=== PATIENT | female | born 1955 | race Caucasian/White ===

== ENCOUNTER 2017-05-20 12:06 | Inpatient (IN) | payer MEDICARE ==
[~2017-05-20] VITALS: Ht 154.9 cm; Wt 63.6 kg
--- NOTE | ~2017-05-20 | CN ---
PATIENT NAME:TYRONE MONROY MEDICAL RECORD: [id number] : 51 LOCATION:D.MS [place]2 ADMIT DATE: 05/20/17 ACCOUNT: [id number] CONSULTING PHYSICIAN: CHRISTY JALLOH MD REFERRING PHYSICIAN: CLAUDIA ANN MD DATE OF CONSULTATION: 05/21/2017 CHIEF COMPLAINT: Abscess. HISTORY OF PRESENT ILLNESS: The symptoms were presented 4 days ago. I have personally seen and examined the patient. I have discussed the patient in person with Dr. Ann. The patient was seen at an urgent care center. She was placed on antibiotics. The symptoms are moderate in intensity. They include induration, tenderness and pain. There are 2 different sites. They are both in the left lower quadrant. One has ribbon gauze coming out of it as a drain. Symptoms came on gradually. Palpation aggravates. Nothing alleviates. I am going to plan for excisional debridement of both of these in the operating room tomorrow. The risks, possible complications and alternatives to procedure were explained to the patient. She elects to proceed. She thought that perhaps she was stung or bitten by some type of insect in this area, but was unsure about it. PAST MEDICAL AND SURGICAL HISTORY: Diabetes mellitus. FAMILY HISTORY: Noncontributory. HOME MEDICATIONS: Have been reviewed. REVIEW OF SYSTEMS: Positive for axillary pain where there was another abscess that does not require debridement at this time. Also, positive for headache. Negative for fatigue. No chest pain, no shortness of breath, no back pain, no agitation, no confusion. Positive for rash. PHYSICAL EXAMINATION: GENERAL: The patient does not appear acutely ill. She does appear chronically ill. The entire physical examination was performed in the presence of a female nurse. VITAL SIGNS: Reviewed. HEAD: External ears appear normal. EYES: Extraocular movements are intact. NECK: Trachea is midline. CHEST: No intercostal retractions. PULMONARY: Nonlabored, no stridor. ABDOMEN: Tenderness around the site of the open wounds. INTEGUMENT: As described above. PSYCHIATRIC: Normal affect. NEUROLOGIC: Nonfocal, no lethargy. The patient answers questions appropriately. Moves all extremities well. BACK: No thoracic kyphosis. LYMPHATICS: No lymphangitic streaking of the exposed extremities. IMPRESSION: Abdominal wall abscesses requiring further debridement after incision and drainage. CONSULT REPORT [id number] TYRONE MONROY PLAN: Will be excisional debridement in the operating room tomorrow. The patient likely will require several days of intravenous antibiotics here in the hospital before being dismissed home. TRANSINT:[id number] Voice Confirmation ID: [id number] DOCUMENT ID: [id number] CHRISTY JALLOH MD CC: CRYS COSTELLO M.D. and CLAUDIA ANN MD [id number] DICTATION DATE: 05/22/17 1148 BARREL POLISHER: 05/22/17 1920 ADM IN [place] [id number] [place] [id number]
--- NOTE | ~2017-05-20 | OP ---
PATIENT NAME: TYRONE MONROY MEDICAL RECORD: [id number] :51 LOCATION:D.MS [place] ADMISSION DATE:05/20/17 SURGEON: MAYKEL JALLOH MD DATE OF OPERATION: 05/22/2017 PREOPERATIVE DIAGNOSIS: Abdominal abscesses times 2, please see dimensions below. POSTOPERATIVE DIAGNOSIS: Abdominal abscesses times 2, please see dimensions below. PROCEDURES: 1. Excisional debridement of abdominal wall abscess, left lower quadrant. The dimensions of the debridement, including margins, measured 4.3 cm x 4.5 cm and is 3.8 cm in depth. The debridement included skin, subcutaneous tissue as well as the abscess cavity. I debrided back sharply to viable bleeding margins. The wound was then marsupialized and packed. 2. Excisional debridement of inferior abscess of the left lower quadrant. Dimensions of debridement, including margins, measured 1.9 x 1.8 cm. It included skin, subcutaneous tissue as well as abscess cavity. This wound was not marsupialized. It was only 1 cm in depth. SURGEON: Maykel Jalloh MD. STRAW HAT BRIM CUTTER OPERATOR: None. BLOOD LOSS: Minimal. ANESTHESIA: General. COMPLICATIONS: None. The risks, possible complications and alternatives to procedure were explained to the patient. She elects to proceed. OPERATIVE COURSE: The patient was conveyed to the operating room electively on 05/22/2017. General anesthesia was induced by anesthesia staff. The abdomen was sterilely prepped and draped. Utilizing scalpel, debridements were carried out. Further curettage was indicated as well. Cultures were obtained. The dimensions of debridement are as listed above. Meticulous hemostasis was achieved with electrocautery. I then irrigated with hydrogen peroxide. I marsupialized the larger of the 2 wounds with a running locking 3-0 Vicryl Rapide suture. I then packed the superior wound, which was the larger wound with Kerlix that has been soaked with quarter-strength Dakin's. Sterile dressings were applied. The patient was then extubated and conveyed to post-anesthesia care unit where she was in stable condition. TRANSINT:[id number] Voice Confirmation ID: [id number] DOCUMENT ID: [id number] OPERATIVE REPORT [id number] MONROYTYRONE Ellis MAYKEL JALLOH MD CC: [id number] DICTATION DATE: 05/22/17 1151 CORPORATE PLANNER: 05/22/17 192 ADM IN [facility] [address] [place] [id number]
[~2017-05-20 12:06] MED LIST: ATIVAN1 MG PO; CELEXA40 MG PO; CLEOCIN HCL300 MG PO; CYCLOBENZAPRINE10 MG PO; K-TAB10 MEQ PO; LASIX20 MG PO; NORCO 10/325 TA1 TA1 PO; PEPCID20 MG PO; PROBOTICS PO; TOPROL XL25 MG PO; ZESTRIL40 MG PO
[2017-05-20 13:44] LABS: BASOPHILS 0.2 % (0-2); EOSINOPHILS 3.7 % (0-7); HEMATOCRIT 38.8 % (36.0-48.0); HEMOGLOBIN 13.1 g/dL (12-16); IMMATURE GRANULOCYTES 0.3 % (0-5); LYMPHOCYTES 10.6 % (15-50); MCH 30.3 pg (26.0-34.0); MCHC 33.8 g/dL (31.0-37.0); MCV 89.6 fL (80.0-100.0); MEAN PLATELET VOLUME 10.8 fL (7.4-10.4); MONOCYTES 10.8 % (2-11); NEUTROPHILS 74.4 % (40-80); RBC 4.33 10x6/uL (4.00-5.40); RDW 13.2 % (11.5-14.5); WBC 6.2 10x3/uL (4.8-10.8)
[2017-05-20 13:46] LABS: PLATELET COUNT 190 10x3/uL (130-400)
[2017-05-20 13:52] LABS: INR 1.02 (0.85-1.17); PROTIME 13.2 SECONDS (11.6-15.0)
[2017-05-20 13:59] LABS: ALBUMIN 3.2 g/dL (3.4-5.0); ALKALINE PHOSPHATASE 70 U/L (46-116); ALT (SGPT) 35 U/L (10-68); BILIRUBIN - TOTAL 0.32 mg/dL (0.2-1.3); CALC OSMOLALITY 279 mosm/kg (275-300); CALCIUM 10.7 mg/dL (8.5-10.1); CARBON DIOXIDE 25.3 mmol/L (21.0-32.0); CHLORIDE - SERUM 96 mmol/L (98-107); GLUCOSE 184 mg/dL (74-106); POTASSIUM - SERUM 5.1 mmol/L (3.5-5.1); PROTEIN - SERUM 7.8 g/dL (6.4-8.2); SODIUM 130 mmol/L (136-145); UREA NITROGEN 51 mg/dL (7-18); eGFR NON AFRICAN AMERICAN 27 mL/min (90-120)
[2017-05-20 14:02] LABS: MAGNESIUM - SERUM 1.3 mg/dL (1.8-2.4)
[2017-05-20 14:03] LABS: TROPONIN-I < 0.017 ng/mL (0.000-0.060)
[2017-05-20 15:16] LABS: APPEARANCE HAZY (CLEAR); BILIRUBIN NEGATIVE (NEGATIVE); COLOR YELLOW (YELLOW); GLUCOSE 1000 mg/dL (NEGATIVE); KETONE NEGATIVE (NEGATIVE); LEUKOCYTE ESTERASE 2+ (NEGATIVE); NITRITE NEGATIVE (NEGATIVE); PROTEIN NEGATIVE (NEGATIVE); SPECIFIC GRAVITY 1.015 (1.005-1.020); UROBILINOGEN NORMAL (NORMAL)
[2017-05-20 15:27] LABS: AMORPHOUS SEDIMENT <1+ /lpf (NONE SEEN); BACTERIA MANY /hpf (NONE SEEN); EPITHELIAL CELLS 0-5 /hpf (0-5); HYALINE CAST RARE /lpf (NONE SEEN); RED CELLS - URINE OCC /hpf (0-5)
--- NOTE | 2017-05-20 22:00 | NUR ---
PATIENT RECEIVED TO ROOM FROM ER VIA STRETCHER WITH HOSPITAL STAFF. AAOX4. RR EVEN AND UNLABORED. 0 S/S OF DISTRESS. STATES PAIN IS AN 8/10. IV TO RIGHT AC PATENT WITH NO REDNESS OR SWELLING. DRESSING TO ABD CDI. ORIENTED PATIENT TO ROOM AND CALL LIGHT. SRX2. BED LOW. CALL LIGHT WITHIN REACH.
--- NOTE | 2017-05-20 23:45 | NUR ---
IV MAG INITIATED PER ORDER. NORCO GIVEN FOR PAIN. WILL REASSESS.
[2017-05-20 23:59] VITALS: BP 93/48; Ht 154.9 cm; Wt 63.6 kg
[2017-05-21] MEDS ORDERED: GLUCOPHAGE500 MG PO (00:10)
[2017-05-21] MEDS ORDERED: GABAPENTIN100 MG PO (00:11)
[2017-05-21] MEDS ORDERED: CYMBALTA20 MG PO (00:12)
[2017-05-21] MEDS ORDERED: KLONOPIN0.5 MG PO (00:13)
--- NOTE | 2017-05-21 05:45 | NUR ---
PATIENT'S BP 79/44, BUT PATIENT IS ASYMPTOMATIC. SPOKE WITH JIMI SINGLETON ABOUT CALLING PHYSICIAN, BUT SHE STATED SHE WOULD SEND AN ICU NURSE TO EVALUATE THE PATIENT FIRST. ORDER PUT IN UNDER DR. TORRES TO GIVE PATIENT A 500ML BOLUS. BOLUS INITIATED.
[2017-05-21 06:55] LABS: BASOPHILS 0.2 % (0-2); EOSINOPHILS 3.3 % (0-7); HEMOGLOBIN 14.1 g/dL (12-16); IMMATURE GRANULOCYTES 0.5 % (0-5); MCH 30.1 pg (26.0-34.0); MCHC 33.6 g/dL (31.0-37.0); MCV 89.7 fL (80.0-100.0); MEAN PLATELET VOLUME 11.2 fL (7.4-10.4); MONOCYTES 11.8 % (2-11); NEUTROPHILS 74.2 % (40-80); PLATELET COUNT 204 10x3/uL (130-400); RBC 4.68 10x6/uL (4.00-5.40); RDW 13.2 % (11.5-14.5); WBC 6.3 10x3/uL (4.8-10.8)
[2017-05-21 06:56] LABS: ANION GAP 15.4 mmol/L (8-16); CALCIUM 10.2 mg/dL (8.5-10.1); CARBON DIOXIDE 23.9 mmol/L (21.0-32.0); POTASSIUM - SERUM 5.3 mmol/L (3.5-5.1)
[2017-05-21 07:00] LABS: CREATININE - SERUM 1.4 mg/dL (0.6-1.3)
--- NOTE | 2017-05-21 07:30 | NUR ---
RESTING IN BED, AT BEDSIDE, BED LOWEST POSIITON CALL LIGHT IN REACH, WILL CONTINUE TO MONITOR, DENIES NEEDS
[2017-05-21 08:21] VITALS: BP 91/55
--- NOTE | 2017-05-21 10:45 | NUR ---
PATIENT UP TO SHOWER WITH ASSIST FROM SONIA, NURSE AID.
[2017-05-21 13:01] VITALS: BP 87/55
[2017-05-21 14:53] LABS: HEMOGLOBIN A1C 6.8 % (4.8-6.0)
[2017-05-21 16:10] VITALS: BP 95/63
--- NOTE | 2017-05-21 19:00 | NUR ---
PATIENT IN BED WATCHING TV. HOB 30 DEGREES. AAOX4. RR EVEN AND UNLABORED. 0 S/S OF DISTRESS. STATES PAIN IS AN 8/10. IV TO RIGHT AC PATENT WITH NO REDNESS OR SWELLING. DRESSING TO LLQ OF ABD SOILED. SCD'S OFF AT THIS TIME. CALL LIGHT WITHIN REACH.
[2017-05-21 20:00] VITALS: BP 110/65
--- NOTE | 2017-05-21 22:00 | NUR ---
COLLECTED PATIENT'S URINE SPECIMENS. 2 UNITS HUMALOG GIVEN FOR BS OF 163. REMOVED SOILED DRESSING TO ABD. APPLIED BACTROBAN PER ORDER. REPLACED WITH CLEAN DRESSING.
--- NOTE | 2017-05-21 23:30 | NUR ---
NORCO GIVEN FOR PAIN.
[2017-05-21 23:46] LABS: CREATININE - URINE 18.9 mg/dL (30-125); POTASSIUM - URINE 12.5 MMOL/L (12.0-62.0)
[2017-05-21 23:47] LABS: PRO/CRE RATIO URINE 0.1 mg/g; PROTEIN - URINE 2.2 mg/dL (0.0-11.9)
[2017-05-22] VITALS: BP 114/66
--- NOTE | 2017-05-22 03:45 | NUR ---
PATIENT C/O PAIN AT AN 8. NORCO GIVEN.
[2017-05-22 04:00] VITALS: BP 120/60
[2017-05-22 06:16] LABS: BASOPHILS 0.3 % (0-2); EOSINOPHILS 5.9 % (0-7); HEMATOCRIT 37.6 % (36.0-48.0); HEMOGLOBIN 12.5 g/dL (12-16); LYMPHOCYTES 14.8 % (15-50); MCH 29.8 pg (26.0-34.0); MCHC 33.2 g/dL (31.0-37.0); MCV 89.7 fL (80.0-100.0); MEAN PLATELET VOLUME 10.7 fL (7.4-10.4); MONOCYTES 11.5 % (2-11); NEUTROPHILS 66.5 % (40-80); PLATELET COUNT 186 10x3/uL (130-400); RBC 4.19 10x6/uL (4.00-5.40); RDW 13.1 % (11.5-14.5)
[2017-05-22 06:17] LABS: WBC 3.9 10x3/uL (4.8-10.8)
[2017-05-22 06:31] LABS: ALBUMIN 2.9 g/dL (3.4-5.0); ANION GAP 11.2 mmol/L (8-16); BILIRUBIN - TOTAL 0.3 mg/dL (0.2-1.3); CALCIUM 8.9 mg/dL (8.5-10.1); CARBON DIOXIDE 22.3 mmol/L (21.0-32.0); CREATININE - SERUM 1.2 mg/dL (0.6-1.3); POTASSIUM - SERUM 4.5 mmol/L (3.5-5.1); PROTEIN - SERUM 7.3 g/dL (6.4-8.2)
--- NOTE | 2017-05-22 07:50 | NUR ---
ASSESSMENT COMPLETE.IV TO R AC PATENT.NS INFUSING AT 125 CC/HR VIA PUMP. CONTACT ISOLATION.NPO FOR SURGERY TODAY. DRESSING TO LLQ INTACT.
[2017-05-22 10:05] VITALS: BP 85/57
--- NOTE | 2017-05-22 10:35 | NUR ---
OFF FLOOR TO OR VIA BED.
--- NOTE | 2017-05-22 12:19 | NUR ---
RETURNED TO ROOM FROM RECOVERY ROOM.
--- NOTE | 2017-05-22 12:20 | NUR ---
VSS. LARGE DRESSING C/D/I TO LLQ. DENIES ANY NEEDS AT PRESENT.
[2017-05-22 12:24] VITALS: BP 121/78
--- NOTE | 2017-05-22 15:00 | NUR ---
RESTING QUIETLY AT THIS TIME.
[2017-05-22 16:03] VITALS: BP 102/55
--- NOTE | 2017-05-22 16:12 | NUR ---
Patient Name: TYRONE MONROY Admission Status: ER Accout number: [id number] Admission Date: 05-20-2017 : 1955 Admission Diagnosis:CELLULITIS OF ABDOMINAL WALL Attending: ANTHONY Current LOS: 2 Anticipated DC Date: 05-24-2017 Planned Disposition: Home Primary Insurance: [facility] Discharge Planning Comments: CM MET WITH [facility] REGARDING D/C NEEDS AND PLANS. PATIENT STATED SHE LIVES WITH HER SPOUSE (CYNTHIA) AND HE WILL DRIVE HER HOME AT DISCHARGE. PATIENT WILL HAVE TO CALL HIS BOSS WHEN DISCHARGED (SPOUSE DOES NOT HAVE PHONE). PATIENT STATED SHE IS INDEPENDENT WITH HER CARE AND HAS A GLUCOMETER AT HOME AND CHECKS SUGAR DAILY. PATIENTS PCP IS DR. COSTELLO AND PHARMACY IS [facility]. PATIENT HAS A NURSE THAT COMES ABOUT EVERY 2 MONTHS THAT IS WITH HER INSURANCE COMPANY. PATIENT DOES NOT WANT HOME HEALTH AT DISCHARGE. CM WILL CONTINUE TO FOLLOW PATIENT WITH D/C NEEDS AND PLANS. PCP DR. COSTELLO [facility] [phone] CYNTHIA (SPOUSE) WILL HAVE TO CALL HIM Doughnut Glazier: Liz Crisostomo Is the patient Alert and Oriented? Yes 0 * How many steps to enter\exit or inside your home? 5 RAILS 0 * PCP DR. COSTELLO 0 * Pharmacy [facility] 0 * Preadmission Environment Home with Family 0 * ADLs Independent 0 * Equipment Glucometer 0 * List name and contact numbers for known caregivers / representatives who currently or will assist patient after discharge: CYNTHIA (SPOUSE) PATIENT WILL CALL HIS BOSS WHEN DISCHARGED 0 * Community resources currently utilized None 0 * Additional services required to return to the preadmission environment? Yes 0 * Can the patient safely return to the preadmission environment? Yes 0 * Has this patient been hospitalized within the prior 30 days at any hospital? No 0 Grand Total: 0
--- NOTE | 2017-05-22 18:38 | NUR ---
NO CHANGESN NOTED AT PRESENT.
[2017-05-22 19:00] VITALS: BP 100/62
--- NOTE | 2017-05-22 19:00 | NUR ---
BEDSIDE REPORT RECEIVED AND CARE OF PT ASSUMED. PT LYING IN SUPINE POSITION WITH EYES CLOSED AND UNLABORED BREATHING. DRESSING ON LL ABDOMEN CLEAN AND DRY. IV IN RIGHT AC PATENT WITH NS INFUSING AT 125 ML / HR. SCD'S IN USE. WILL MONITOR CLOSELY FOR NEEDS.
--- NOTE | 2017-05-22 21:44 | NUR ---
HS MEICATIONS GIVEN TO INCLUDE NORCO PO PER REQUEST FOR PAIN, PER PRN ORDER. WILL CONTINUE TO MONITOR FOR NEEDS.
--- NOTE | 2017-05-22 23:37 | NUR ---
COLLECTED URINE FOR CULTURE AND DELIVERED TO LAB.
[2017-05-23] VITALS: BP 81/49
[2017-05-23 04:00] VITALS: BP 100/53
[2017-05-23 05:50] LABS: BASOPHILS 0.3 % (0-2); HEMATOCRIT 34.9 % (36.0-48.0); HEMOGLOBIN 11.7 g/dL (12-16); IMMATURE GRANULOCYTES 0.6 % (0-5); LYMPHOCYTES 12.8 % (15-50); MCH 30.2 pg (26.0-34.0); MCHC 33.5 g/dL (31.0-37.0); MCV 89.9 fL (80.0-100.0); MEAN PLATELET VOLUME 10.5 fL (7.4-10.4); MONOCYTES 13.1 % (2-11); NEUTROPHILS 68.2 % (40-80); PLATELET COUNT 183 10x3/uL (130-400); RBC 3.88 10x6/uL (4.00-5.40); WBC 3.6 10x3/uL (4.8-10.8)
[2017-05-23 06:16] LABS: ALBUMIN 2.8 g/dL (3.4-5.0); ANION GAP 12.8 mmol/L (8-16); BILIRUBIN - TOTAL 0.3 mg/dL (0.2-1.3); CALCIUM 9.2 mg/dL (8.5-10.1); CARBON DIOXIDE 24.4 mmol/L (21.0-32.0); CREATININE - SERUM 1.1 mg/dL (0.6-1.3); PROTEIN - SERUM 6.8 g/dL (6.4-8.2); VANCOMYCIN - RANDOM 0.4 ug/mL (10.0-20.0)
[2017-05-23 06:17] LABS: POTASSIUM - SERUM 5.2 mmol/L (3.5-5.1)
--- NOTE | 2017-05-23 07:50 | NUR ---
ASSESSMENT COMPLETE.IV TO R AC PATENT. NS INFUSING AT 125 CC/HR VIA PUMP. DRESSING TO LEFT LOWER ABDOMEN INTACT. CONTACT ISOLATION. DENIES ANY NEEDS AT PRESENT.
[2017-05-23 08:42] VITALS: BP 110/68
--- NOTE | 2017-05-23 10:03 | NUR ---
DENIES ANY NEEDS AT PRESENT.
[2017-05-23 12:01] VITALS: BP 94/61
--- NOTE | 2017-05-23 15:18 | NUR ---
DENIES ANY NEEDS AT PRESENT.
[2017-05-23 15:45] VITALS: BP 121/74
--- NOTE | 2017-05-23 17:30 | NUR ---
IV TO R FA LEAKING. IV REMOVED. CATHETER TIP INTACT. IV SITED TO L FA WITH 22 GUAGE X 2 ATTEMPTS.
--- NOTE | 2017-05-23 19:00 | NUR ---
BEDSIDE REPORT RECEIVED AND CARE OF PT ASSUMED. PT SITTING UP ON SIDE OF BED VISITING WITH FAMILY MEMBER. IV IN LEFT FA PATENT WITH NS INFUSING AT 125 ML / HR. DRESSING ON LEFT ABDOMEN CLEAN AND DRY. WILL MONITOR CLOSELY FOR NEEDS. CALL LIGHT WITHIN REACH.
[2017-05-23 20:00] VITALS: BP 115/76
--- NOTE | 2017-05-23 20:50 | NUR ---
FSBS 165 THIS CHECK, REQUIRING COVERAGE WITH 2 UNITS OF INSULIN.
--- NOTE | 2017-05-23 20:55 | NUR ---
HS MEDICATIONS GIVEN TO INCLUDE REQUESTED NORCO FOR PAIN. WILL CONTINUE TO MONITOR FOR NEEDS.
--- NOTE | 2017-05-23 21:00 | NUR ---
GAVE HS SNACK OF X2 ORANGE SHERBET AND SHAISTA CRACKERS.
[2017-05-24] VITALS: BP 142/38
[2017-05-24 04:00] VITALS: BP 117/66
[2017-05-24 06:23] LABS: BASOPHILS 0.4 % (0-2); EOSINOPHILS 4.3 % (0-7); HEMATOCRIT 31.9 % (36.0-48.0); HEMOGLOBIN 10.8 g/dL (12-16); IMMATURE GRANULOCYTES 0.4 % (0-5); LYMPHOCYTES 17.9 % (15-50); MCH 29.7 pg (26.0-34.0); MCHC 33.9 g/dL (31.0-37.0); MEAN PLATELET VOLUME 10.3 fL (7.4-10.4); MONOCYTES 13.6 % (2-11); NEUTROPHILS 63.4 % (40-80); PLATELET COUNT 177 10x3/uL (130-400); RBC 3.64 10x6/uL (4.00-5.40); RDW 12.6 % (11.5-14.5)
[2017-05-24 06:31] LABS: MCV 87.6 fL (80.0-100.0); WBC 2.6 10x3/uL (4.8-10.8)
[2017-05-24 06:55] LABS: ALBUMIN 2.7 g/dL (3.4-5.0); ALKALINE PHOSPHATASE 58 U/L (46-116); ALT (SGPT) 24 U/L (10-68); BILIRUBIN - TOTAL 0.36 mg/dL (0.2-1.3); CALC OSMOLALITY 274 mosm/kg (275-300); CALCIUM 8.5 mg/dL (8.5-10.1); CHLORIDE - SERUM 104 mmol/L (98-107); GLUCOSE 130 mg/dL (74-106); PROTEIN - SERUM 6.4 g/dL (6.4-8.2); SODIUM 136 mmol/L (136-145); UREA NITROGEN 14 mg/dL (7-18); VANCOMYCIN - RANDOM 4.9 ug/mL (10.0-20.0)
[2017-05-24 06:58] LABS: CREATININE - SERUM 0.8 mg/dL (0.6-1.3); POTASSIUM - SERUM 3.9 mmol/L (3.5-5.1); eGFR NON AFRICAN AMERICAN 76 mL/min (90-120)
--- NOTE | 2017-05-24 08:00 | NUR ---
PATIENT RESTING IN THE BED. PATIENT IS AWAKE, ALERT, AND ORIENTED X4. DENIES ANY PAIN AT PRESENT TIME. CONTACT ISOLATION IN PLACE. ASSESSMENT COMPLETED. SEE FLOWSHEET FOR ANY DETAILS. PATIENT DENIES ANY NEEDS AT PRESENT TIME. CALL LIGHT IN PATIENT'S REACH. WILL MONITOR PATIENT.
[2017-05-24 08:16] VITALS: BP 113/63
[2017-05-24] MEDS ORDERED: Bactroban ointment NASAL (11:51)
[2017-05-24] MEDS ORDERED: FLORAJEN3 CAPS460 MG PO (11:51)
[2017-05-24] MEDS ORDERED: DOXYCYCLINE HY100 M2 PO (11:53)
[2017-05-24 12:11] VITALS: BP 110/68
--- NOTE | 2017-05-24 13:39 | NUR ---
CM REASSESSMENT NOTE: PATIENT IS DISCHARGING HOME TODAY AND FAMILY WILL DRIVE HER. PATIENT SIGNED THE [facility] FORM WITH [facility] AND THEY ARE AWARE OF HER DISCHARGE. PATIENT HAD NO OTHER NEEDS FOR DISCHARGE
--- NOTE | 2017-05-24 14:38 | NUR ---
HYDROGEN PEROXIDE USED TO CLEAN OPEN ABDOMINAL WOUNDS X2 TO PATIENT'S LEFT SIDE OF ABDOMEN. 4X4 GAUZE APPLIED AND ABD PAD USED TO COVER WOUND. MEDIPORE TAPE USED TO HOLD DRESSING IN PLACE.
--- NOTE | 2017-05-24 15:20 | NUR ---
IV DC'D IN PATIENT'S LEFT FOREARM WITH CATHETER TIP STILL INTACT. BANDAID APPLIED. DISCHARGE PAPERS VERBALIZED TO PATIENT. PATIENT VERBALIZED UNDERSTANDING AND SIGNED DISCHARGE PAPERS. BACTROBAN OINTMENT PRESCRIPTION GIVEN TO PATIENT. PATIENT'S HERE TO DRIVE HER HOME. PATIENT DISCHARGED VIA WHEELCHAIR TO THE CAR.
== END 2017-05-24 15:20 | disposition home health service (06) | DRG 571 ==
LOC: D.ER 12:06 → D.MS 17:32
PROVIDERS: Emergency Medicine; Internal Medicine; Nurse Practitioner Family; Surgery; ADMIT Family Medicine
PROC: 0JB80ZZ Excision of Abdomen Subcutaneous Tissue and Fascia, Open Approach (ICD-10-PCS; principal; 2017-05-22 12:15)
DX: L03.311 Cellulitis of abdominal wall (principal); N17.9 Acute kidney failure, unspecified; E87.1 Hypo-osmolality and hyponatremia; L02.211 Cutaneous abscess of abdominal wall; E83.42 Hypomagnesemia; E87.5 Hyperkalemia; I95.9 Hypotension, unspecified; E11.65 Type 2 diabetes mellitus with hyperglycemia; E11.40 Type 2 diabetes mellitus with diabetic neuropathy, unspecified; Z79.84 Long term (current) use of oral hypoglycemic drugs; K21.9 Gastro-esophageal reflux disease without esophagitis

== ENCOUNTER 2018-04-07 11:37 | Emergency (ER) | payer MEDICARE ==
[2017-05-20 23:59] VITALS: BMI 26.5
[~2018-04-07 11:37] MED LIST changes: +Bactroban ointment NASAL; +CYMBALTA20 MG PO; +DOXYCYCLINE HY100 M2 PO; +FLORAJEN3 CAPS460 MG PO; +GABAPENTIN100 MG PO; +GLUCOPHAGE500 MG PO; +KLONOPIN0.5 MG PO
[2018-04-07 12:47] LABS: BASOPHILS 0.3 % (0-2); EOSINOPHILS 2.9 % (0-7); HEMATOCRIT 36.4 % (36.0-48.0); HEMOGLOBIN 12.4 g/dL (12-16); LYMPHOCYTES 10.9 % (15-50); MCH 30.9 pg (26.0-34.0); MCHC 34.1 g/dL (31.0-37.0); MCV 90.8 fL (80.0-100.0); MEAN PLATELET VOLUME 10.2 fL (7.4-10.4); MONOCYTES 6.2 % (2-11); NEUTROPHILS 78.7 % (40-80); RBC 4.01 10x6/uL (4.00-5.40); RDW 12.8 % (11.5-14.5); WBC 7.9 10x3/uL (4.8-10.8)
[2018-04-07 12:53] LABS: PLATELET COUNT 232 10x3/uL (130-400)
[2018-04-07 13:06] LABS: APPEARANCE SLT CLOUDY (CLEAR); BILIRUBIN NEGATIVE (NEGATIVE); COLOR YELLOW (YELLOW); GLUCOSE 1000 mg/dL (NEGATIVE); KETONE NEGATIVE (NEGATIVE); NITRITE POSITIVE (NEGATIVE); PROTEIN NEGATIVE (NEGATIVE); SPECIFIC GRAVITY 1.015 (1.005-1.020); UROBILINOGEN NORMAL (NORMAL)
[2018-04-07 13:09] LABS: ALBUMIN 3.2 g/dL (3.4-5.0); ANION GAP 13.5 mmol/L (8-16); BILIRUBIN - TOTAL 0.4 mg/dL (0.2-1.3); CALCIUM 10.2 mg/dL (8.5-10.1); CARBON DIOXIDE 28.2 mmol/L (21.0-32.0); CREATININE - SERUM 1.2 mg/dL (0.6-1.3); POTASSIUM - SERUM 4.7 mmol/L (3.5-5.1); PROTEIN - SERUM 8.1 g/dL (6.4-8.2)
[2018-04-07 13:10] LABS: BACTERIA MANY /hpf (NONE SEEN); EPITHELIAL CELLS 0-5 /hpf (0-5); RED CELLS - URINE OCC /hpf (0-5); WHITE CELLS - URINE >50 /hpf (0-5)
[2018-04-07 13:11] LABS: MUCUS <1+ /lpf (NONE SEEN)
[2018-04-07 13:40] LABS: AMYLASE - SERUM 45 U/L (25-115); LIPASE 253 U/L (73-393)
== END 2018-04-07 15:07 | disposition home or self-care (01) ==
LOC: D.ER 11:37
PROVIDERS: Family Medicine
DX: N39.0 Urinary tract infection, site not specified (principal); K46.9 Unspecified abdominal hernia without obstruction or gangrene; E11.9 Type 2 diabetes mellitus without complications

== ENCOUNTER → 2018-04-23 13:50 | Outpatient (CLI) | payer MEDICARE ==
[2017-05-20 23:59] VITALS: BMI 26.5
== END | disposition home or self-care (01) ==
LOC: D.CT 13:50
DX: M25.552 Pain in left hip (principal)

== ENCOUNTER 2018-05-20 07:15 | Inpatient (IN) | payer MEDICARE, MEDICAID ==
[2018-05-19 12:16] LABS: ANION GAP 14.4 mmol/L (8-16); CALCIUM 10.4 mg/dL (8.5-10.1); CARBON DIOXIDE 27.6 mmol/L (21.0-32.0)
[2018-05-19 12:56] LABS: HEMATOCRIT 38.5 % (36.0-48.0); HEMOGLOBIN 12.7 g/dL (12-16); MCH 29.7 pg (26.0-34.0); MCV 90.2 fL (80.0-100.0); MEAN PLATELET VOLUME 11.9 fL (7.4-10.4); RBC 4.27 10x6/uL (4.00-5.40); RDW 13.7 % (11.5-14.5); WBC 4.2 10x3/uL (4.8-10.8)
[2018-05-20] VITALS (9 sets, daily range): BP systolic 100–118; BP diastolic 36–77; BMI 28.3
[~2018-05-20] VITALS: Ht 152.4 cm; Wt 65.8 kg
[~2018-05-20 07:15] MED LIST changes: -CYMBALTA20 MG PO; +CYMBALTA60 MG PO; +LOPRESSOR25 MG PO; +OMEPRAZOLE20 M1 PO
[2018-05-21 01:05] VITALS: BP 105/67
[2018-05-21 05:16] VITALS: BP 113/68
[2018-05-21 06:57] LABS: CALCIUM 8.6 mg/dL (8.5-10.1); CARBON DIOXIDE 26.4 mmol/L (21.0-32.0); CHLORIDE - SERUM 105 mmol/L (98-107); GLUCOSE 174 mg/dL (74-106); POTASSIUM - SERUM 4.5 mmol/L (3.5-5.1); SODIUM 139 mmol/L (136-145); eGFR NON AFRICAN AMERICAN 89 mL/min (90-120)
[2018-05-21 07:09] LABS: CALC OSMOLALITY 283 mosm/kg (275-300); CREATININE - SERUM 0.7 mg/dL (0.6-1.3); UREA NITROGEN 17 mg/dL (7-18)
[2018-05-21 08:13] VITALS: BP 111/68
[2018-05-21 12:35] VITALS: BP 121/73
[2018-05-21 14:07] VITALS: Ht 152.4 cm; Wt 65.8 kg
[2018-05-21 16:37] VITALS: BP 115/64
[2018-05-21 20:01] VITALS: BP 103/68
[2018-05-22 04:35] VITALS: BP 119/68
[2018-05-22 05:24] LABS: BASOPHILS 0.3 % (0-2); EOSINOPHILS 7.3 % (0-7); HEMATOCRIT 30.7 % (36.0-48.0); IMMATURE GRANULOCYTES 0.3 % (0-5); LYMPHOCYTES 16.5 % (15-50); MCH 29.6 pg (26.0-34.0); MCHC 32.6 g/dL (31.0-37.0); MCV 90.8 fL (80.0-100.0); MEAN PLATELET VOLUME 10.9 fL (7.4-10.4); MONOCYTES 13.4 % (2-11); NEUTROPHILS 62.2 % (40-80); RBC 3.38 10x6/uL (4.00-5.40); RDW 13.6 % (11.5-14.5); WBC 3.6 10x3/uL (4.8-10.8)
[2018-05-22 05:39] LABS: PLATELET COUNT 110 10x3/uL (130-400)
[2018-05-22 05:40] LABS: CALCIUM 8.5 mg/dL (8.5-10.1); CARBON DIOXIDE 26.7 mmol/L (21.0-32.0); CHLORIDE - SERUM 101 mmol/L (98-107); CREATININE - SERUM 0.7 mg/dL (0.6-1.3); GLUCOSE 137 mg/dL (74-106); SODIUM 136 mmol/L (136-145); eGFR NON AFRICAN AMERICAN 89 mL/min (90-120)
[2018-05-22 05:45] LABS: CALC OSMOLALITY 272 mosm/kg (275-300); POTASSIUM - SERUM 3.7 mmol/L (3.5-5.1); UREA NITROGEN 9 mg/dL (7-18)
[2018-05-22 08:14] VITALS: BP 104/55
[2018-05-22 13:15] VITALS: BP 123/73
[2018-05-22 16:16] VITALS: BP 130/72
[2018-05-22 20:32] VITALS: BP 166/84
[2018-05-23 04:07] LABS: BASOPHILS 0.6 % (0-2); EOSINOPHILS 5.7 % (0-7); HEMATOCRIT 29.9 % (36.0-48.0); HEMOGLOBIN 9.8 g/dL (12-16); IMMATURE GRANULOCYTES 0.3 % (0-5); LYMPHOCYTES 15.3 % (15-50); MCHC 32.8 g/dL (31.0-37.0); MCV 88.5 fL (80.0-100.0); MEAN PLATELET VOLUME 9.6 fL (7.4-10.4); MONOCYTES 10.5 % (2-11); NEUTROPHILS 67.6 % (40-80); PLATELET COUNT 108 10x3/uL (130-400); RBC 3.38 10x6/uL (4.00-5.40); RDW 13.3 % (11.5-14.5); WBC 3.3 10x3/uL (4.8-10.8)
[2018-05-23 04:13] LABS: CALC OSMOLALITY 274 mosm/kg (275-300); CALCIUM 8.4 mg/dL (8.5-10.1); CARBON DIOXIDE 27.4 mmol/L (21.0-32.0); CHLORIDE - SERUM 103 mmol/L (98-107); CREATININE - SERUM 0.6 mg/dL (0.6-1.3); GLUCOSE 154 mg/dL (74-106); POTASSIUM - SERUM 3.7 mmol/L (3.5-5.1); SODIUM 137 mmol/L (136-145); eGFR NON AFRICAN AMERICAN > 90 mL/min (90-120)
[2018-05-23 04:15] LABS: UREA NITROGEN 6 mg/dL (7-18)
[2018-05-23 04:16] VITALS: BP 166/80
[2018-05-23 08:00] VITALS: BP 135/80
[2018-05-23 11:45] VITALS: BP 145/84
[2018-05-23 15:46] VITALS: BP 129/85
[2018-05-23 19:51] VITALS: BP 155/80
[2018-05-24 04:11] VITALS: BP 126/86
[2018-05-24 05:44] LABS: BASOPHILS 0.3 % (0-2); EOSINOPHILS 8.1 % (0-7); HEMATOCRIT 28.6 % (36.0-48.0); HEMOGLOBIN 9.5 g/dL (12-16); IMMATURE GRANULOCYTES 0.6 % (0-5); LYMPHOCYTES 17.9 % (15-50); MCH 29.2 pg (26.0-34.0); MCHC 33.2 g/dL (31.0-37.0); MONOCYTES 14.6 % (2-11); NEUTROPHILS 58.5 % (40-80); PLATELET COUNT 129 10x3/uL (130-400); RBC 3.25 10x6/uL (4.00-5.40); RDW 13.4 % (11.5-14.5); WBC 3.1 10x3/uL (4.8-10.8)
[2018-05-24 06:13] LABS: CALC OSMOLALITY 273 mosm/kg (275-300); CALCIUM 8.8 mg/dL (8.5-10.1); CARBON DIOXIDE 25.6 mmol/L (21.0-32.0); CHLORIDE - SERUM 102 mmol/L (98-107); CREATININE - SERUM 0.6 mg/dL (0.6-1.3); GLUCOSE 152 mg/dL (74-106); POTASSIUM - SERUM 3.3 mmol/L (3.5-5.1); SODIUM 137 mmol/L (136-145); UREA NITROGEN 5 mg/dL (7-18); eGFR NON AFRICAN AMERICAN > 90 mL/min (90-120)
[2018-05-24 08:45] VITALS: BP 130/80
[2018-05-24 12:39] VITALS: BP 145/69
[2018-05-24] MEDS ORDERED: FARXIGA10 MG PO (16:08)
[2018-05-24 16:37] VITALS: BP 124/81
[2018-05-24 20:55] VITALS: BP 148/87
== END 2018-05-24 22:46 | disposition home or self-care (01) | DRG 571 ==
LOC: D.MS 07:15 → D.OPS 07:15 → D.PAN 11:45 → D.OPS 11:45 → D.MS 14:33 → D.OPS 14:34 → D.MS 05-24 18:05
PROVIDERS: Anesthesiology; Surgery
PROC: 0JB80ZZ Excision of Abdomen Subcutaneous Tissue and Fascia, Open Approach (ICD-10-PCS; principal; 2018-05-22)
DX: L02.211 Cutaneous abscess of abdominal wall (principal); K56.7 Ileus, unspecified; E11.9 Type 2 diabetes mellitus without complications

== ENCOUNTER 2018-11-21 08:00 | Outpatient (CLI) | payer MEDICARE, MEDICAID ==
[2018-05-21 14:07] VITALS: BMI 28.3
[~2018-11-21 08:00] MED LIST changes: +FARXIGA10 MG PO
== END 2018-11-21 09:00 | disposition home or self-care (01) ==
LOC: D.MAMMO 08:00
DX: Z12.31 Encounter for screening mammogram for malignant neoplasm of breast (principal)

== ENCOUNTER → 2019-07-13 12:23 | Outpatient (CLI) | payer MEDICARE, MEDICAID ==
[2018-05-21 14:07] VITALS: BMI 28.3
== END | disposition home or self-care (01) ==
LOC: D.CT 12:23
PROVIDERS: ATTEND Family Medicine
DX: M79.9 Soft tissue disorder, unspecified (principal)

== ENCOUNTER → 2019-09-02 16:02 | Outpatient (CLI) | payer MEDICARE, MEDICAID ==
[2018-05-21 14:07] VITALS: BMI 28.3
[2019-09-02 18:06] LABS: BASOPHILS 0.5 % (0-2); EOSINOPHILS 3.4 % (0-7); HEMATOCRIT 37.2 % (36.0-48.0); HEMOGLOBIN 12.5 g/dL (12-16); IMMATURE GRANULOCYTES 0.3 % (0-5); LYMPHOCYTES 19.4 % (15-50); MCH 31.2 pg (26.0-34.0); MCHC 33.6 g/dL (31.0-37.0); MCV 92.8 fL (80.0-100.0); MONOCYTES 10.2 % (2-11); NEUTROPHILS 66.2 % (40-80); PLATELET COUNT 135 10x3/uL (130-400); RBC 4.01 10x6/uL (4.00-5.40); RDW 13.1 % (11.5-14.5); WBC 3.8 10x3/uL (4.8-10.8)
[2019-09-04 10:11] LABS: ANA REFLEX - DIRECT Negative (Negative)
[2019-09-05 17:08] LABS: ANGIOTENSIN CONVERTING ENZYME < 15 U/L (14-82)
[2019-09-08 17:08] LABS: FUNGAL - ASP FLAVUS Negative (Neg:<1:1); FUNGAL - ASP NIGER Negative (Neg:<1:1); FUNGAL - ASPER FUMIGATUS Negative (Neg:<1:1)
== END | disposition home or self-care (01) ==
LOC: D.LABREF 16:02
PROVIDERS: ATTEND Internal Medicine Pulmonary Disease
DX: R59.0 Localized enlarged lymph nodes (principal)

== ENCOUNTER → 2019-10-16 09:26 | Outpatient (CLI) | payer MEDICARE ==
[2018-05-21 14:07] VITALS: BMI 28.3
== END | disposition home or self-care (01) ==
LOC: D.US 09:26
PROVIDERS: ATTEND Surgery
DX: I83.819 Varicose veins of unspecified lower extremity with pain (principal)

== ENCOUNTER → 2020-01-25 12:52 | Outpatient (CLI) | payer MEDICARE ==
[2018-05-21 14:07] VITALS: BMI 28.3
== END | disposition home or self-care (01) ==
LOC: D.CT 12:52
PROVIDERS: ATTEND Internal Medicine Pulmonary Disease
DX: R59.0 Localized enlarged lymph nodes (principal)

== ENCOUNTER 2020-08-24 13:36 | Inpatient (IN) | payer MEDICARE ==
[~2020-08-24] VITALS: Ht 154.9 cm; Wt 70.1 kg
[2020-08-24 14:36] LABS: BASOPHILS 0.2 % (0-2); EOSINOPHILS 2.9 % (0-7); HEMATOCRIT 36.8 % (36.0-48.0); HEMOGLOBIN 12.2 g/dL (12-16); IMMATURE GRANULOCYTES 0.2 % (0-5); LYMPHOCYTES 8.4 % (15-50); MCH 29.5 pg (26.0-34.0); MCHC 33.2 g/dL (31.0-37.0); MCV 89.1 fL (80.0-100.0); MEAN PLATELET VOLUME 11.1 fL (7.4-10.4); MONOCYTES 8.7 % (2-11); NEUTROPHILS 79.6 % (40-80); PLATELET COUNT 170 10x3/uL (130-400); RBC 4.13 10x6/uL (4.00-5.40); RDW 13.7 % (11.5-14.5); WBC 5.3 10x3/uL (4.8-10.8)
[2020-08-24 14:44] LABS: INR 1.04 (0.85-1.17); PROTIME 13.5 SECONDS (11.6-15.0)
[2020-08-24 14:45] LABS: APTT 26.3 SECONDS (22.8-39.4)
[2020-08-24 14:50] LABS: CALC OSMOLALITY 271 mosm/kg (275-300); CALCIUM 9.7 mg/dL (8.5-10.1); CHLORIDE - SERUM 99 mmol/L (98-107); CREATININE - SERUM 0.9 mg/dL (0.6-1.3); GLUCOSE 151 mg/dL (74-106); POTASSIUM - SERUM 4.2 mmol/L (3.5-5.1); SODIUM 134 mmol/L (136-145); UREA NITROGEN 16 mg/dL (7-18); eGFR NON AFRICAN AMERICAN 66 mL/min (90-120)
[2020-08-24 15:06] LABS: ALBUMIN 3.9 g/dL (3.4-5.0); ALKALINE PHOSPHATASE 72 U/L (30-120); ALT (SGPT) 20 U/L (10-68); BILIRUBIN - TOTAL 0.73 mg/dL (0.2-1.3); CKMB 1.4 U/L (0.0-3.6); CREATINE KINASE 64 UL (21-215); PRO BNP 2450 pg/mL (0-125); PROTEIN - SERUM 7.8 g/dL (6.4-8.2)
[2020-08-24 15:10] LABS: TROPONIN-I < 0.017 ng/mL (0.000-0.060)
[2020-08-24 16:41] VITALS: BP 136/75
[2020-08-24 18:33] VITALS: BP 153/90
--- NOTE | 2020-08-24 19:45 | NUR ---
ATTEMPTED TO CALL REPORT TO FLOOR, NURSE UNAVAILABLE AT THIS TIME. WILL CALL BACK WHEN AVAILABLE TO TAKE REPORT.
[2020-08-24 20:03] LABS: BILIRUBIN NEGATIVE (NEGATIVE); KETONE NEGATIVE (NEGATIVE); NITRITE NEGATIVE (NEGATIVE); UROBILINOGEN NORMAL mg/dL (< 2)
--- NOTE | 2020-08-24 20:30 | NUR ---
ATTEMPTED TO CALL REPORT TO FLOOR AGAIN, NURSE STATES PT WILL HAVE TO GO TO A DIFFERENT ROOM SINCE THE PT IS A PUI AND THE NURSE THAT WILL BE TAKING THEM IS CURRENTLY UNAVAILABLE TO TAKE REPORT AND WILL CALL BACK WHEN AVAILABLE.
[2020-08-24 21:50] LABS: CKMB 1.3 U/L (0.0-3.6); CREATINE KINASE 63 UL (21-215); TROPONIN-I < 0.017 ng/mL (0.000-0.060)
--- NOTE | 2020-08-24 22:24 | NUR ---
PATIENT TO THE FLOOR, A&O X4, AMBULATES WELL JUST GET SOB. LEFT FOREARM PIV THAT IS PATENT. CALL LIGHT WITHIN REACH AND BED IN LOWEST LOCKED POSITION.
[2020-08-24 22:35] VITALS: BP 144/66; BMI 29.2
[2020-08-25] VITALS: BP 112/75
[2020-08-25 03:10] LABS: BASOPHILS 0.2 % (0-2); EOSINOPHILS 0.3 % (0-7); HEMATOCRIT 36.4 % (36.0-48.0); HEMOGLOBIN 12.1 g/dL (12-16); IMMATURE GRANULOCYTES 0.3 % (0-5); LYMPHOCYTES 8.2 % (15-50); MCH 29.5 pg (26.0-34.0); MCHC 33.2 g/dL (31.0-37.0); MCV 88.8 fL (80.0-100.0); MEAN PLATELET VOLUME 10.9 fL (7.4-10.4); MONOCYTES 1.3 % (2-11); NEUTROPHILS 89.7 % (40-80); PLATELET COUNT 182 10x3/uL (130-400); RDW 13.6 % (11.5-14.5)
[2020-08-25 03:32] LABS: ALBUMIN 3.7 g/dL (3.4-5.0); ALKALINE PHOSPHATASE 72 U/L (30-120); ALT (SGPT) 22 U/L (10-68); BILIRUBIN - TOTAL 0.84 mg/dL (0.2-1.3); C-REACTIVE PROTEIN 0.5 mg/dL (0.0-0.9); CALCIUM 9.3 mg/dL (8.5-10.1); CARBON DIOXIDE 24.8 mmol/L (21.0-32.0); CHLORIDE - SERUM 98 mmol/L (98-107); CKMB 1.1 U/L (0.0-3.6); CREATINE KINASE 50 UL (21-215); CREATININE - SERUM 1.1 mg/dL (0.6-1.3); FERRITIN 33 ng/mL (3-244); PHOSPHOROUS 2.3 mg/dL (2.5-4.9); POTASSIUM - SERUM 4.1 mmol/L (3.5-5.1); PRO BNP 2155 pg/mL (0-125); PROTEIN - SERUM 7.6 g/dL (6.4-8.2); SODIUM 131 mmol/L (136-145); UREA NITROGEN 16 mg/dL (7-18); eGFR NON AFRICAN AMERICAN 52 mL/min (90-120)
[2020-08-25 03:55] LABS: CALC OSMOLALITY 271 mosm/kg (275-300); GLUCOSE 243 mg/dL (74-106); TROPONIN-I < 0.017 ng/mL (0.000-0.060)
[2020-08-25 03:56] LABS: MAGNESIUM - SERUM 0.9 mg/dL (1.8-2.4)
[2020-08-25 04:00] VITALS: BP 120/76
--- NOTE | 2020-08-25 04:00 | NUR ---
TEOFILO ALMODOVAR TO INFORM OF PATIENT'S CRITICAL LAB VALUE
[2020-08-25 04:20] LABS: ERYTHROCYTE SEDIMENTATION RATE 16 mm/hr (0-30)
[2020-08-25 06:55] VITALS: BP 134/78
--- NOTE | 2020-08-25 07:15 | NUR ---
RECEIVE SHIFT REPORT. RESTING IN BED WITH EYES CLOSED. NO SIGNS OF DISTRESS. COVID-[address] WILL CONTINUE PLAN OF CARE.
[2020-08-25 08:48] LABS: CREATINE KINASE 47 UL (21-215); TROPONIN-I < 0.017 ng/mL (0.000-0.060)
[2020-08-25 09:05] VITALS: Ht 154.9 cm; Wt 70.1 kg
[2020-08-25 10:32] VITALS: BP 119/72
[2020-08-25 15:11] VITALS: BP 122/69
[2020-08-25 22:26] VITALS: BP 125/69
[2020-08-26 02:47] VITALS: BP 100/57
[2020-08-26 05:32] LABS: BASOPHILS 0 % (0-2); EOSINOPHILS 0 % (0-7); HEMATOCRIT 35.7 % (36.0-48.0); HEMOGLOBIN 11.8 g/dL (12-16); IMMATURE GRANULOCYTES 0.1 % (0-5); LYMPHOCYTES 6.2 % (15-50); MCH 29.2 pg (26.0-34.0); MCHC 33.1 g/dL (31.0-37.0); MCV 88.4 fL (80.0-100.0); MEAN PLATELET VOLUME 11.5 fL (7.4-10.4); MONOCYTES 2.8 % (2-11); NEUTROPHILS 90.9 % (40-80); RBC 4.04 10x6/uL (4.00-5.40)
[2020-08-26 05:51] LABS: ANION GAP 11.5 mmol/L (8-16); CALCIUM 9.3 mg/dL (8.5-10.1); CARBON DIOXIDE 23.8 mmol/L (21.0-32.0); CREATININE - SERUM 1.2 mg/dL (0.6-1.3); POTASSIUM - SERUM 4.3 mmol/L (3.5-5.1)
[2020-08-26 05:52] LABS: PLATELET COUNT 232 10x3/uL (130-400); WBC 13.3 10x3/uL (4.8-10.8)
[2020-08-26 05:54] LABS: MAGNESIUM - SERUM 1.3 mg/dL (1.8-2.4); PHOSPHOROUS 3.3 mg/dL (2.5-4.9)
[2020-08-26 06:15] VITALS: BP 122/70
[2020-08-26 09:27] VITALS: BP 100/54
[2020-08-26 13:00] VITALS: BP 97/58
[2020-08-26 17:18] VITALS: BP 105/67
--- NOTE | 2020-08-26 19:56 | NUR ---
RECIEVED UP IN BED WITH HOB ELEVATED. ALERT AND ORIENTED . UP AD KEE TO B/R. IV TO LT HAND. TELEMETRY IN PLACE. DENIES ANY NEEDS AT THIS TIME.
[2020-08-26 20:00] VITALS: BP 110/70
[2020-08-27 04:00] VITALS: BP 115/81
[2020-08-27 05:49] LABS: BASOPHILS 0 % (0-2); EOSINOPHILS 0 % (0-7); HEMATOCRIT 33.6 % (36.0-48.0); HEMOGLOBIN 10.9 g/dL (12-16); IMMATURE GRANULOCYTES 0.3 % (0-5); LYMPHOCYTES 8.9 % (15-50); MCH 28.8 pg (26.0-34.0); MCHC 32.4 g/dL (31.0-37.0); MCV 88.7 fL (80.0-100.0); MEAN PLATELET VOLUME 10.9 fL (7.4-10.4); MONOCYTES 7.8 % (2-11); PLATELET COUNT 193 10x3/uL (130-400); RBC 3.79 10x6/uL (4.00-5.40); WBC 10.1 10x3/uL (4.8-10.8)
[2020-08-27 06:12] LABS: ANION GAP 12.2 mmol/L (8-16); CALCIUM 9.1 mg/dL (8.5-10.1); MAGNESIUM - SERUM 1.4 mg/dL (1.8-2.4); PHOSPHOROUS 2.8 mg/dL (2.5-4.9); POTASSIUM - SERUM 4.2 mmol/L (3.5-5.1)
[2020-08-27 08:24] VITALS: BP 114/73
[2020-08-27] MEDS ORDERED: OMNICEF300 MG PO (09:42)
[2020-08-27] MEDS ORDERED: ELIQUIS5 MG PO (09:42)
[2020-08-27] MEDS ORDERED: SORINE80 MG PO (09:42)
--- NOTE | 2020-08-27 12:56 | NUR ---
SALINE LOCK REMOVED, DISCHARGE INSTRUCTIONS DISCUSSED WITH PATIENT, TO [place] VIA WHEELCHAIR FOR RIDE HOME.
--- NOTE | 2020-08-27 18:01 | MORECARE ---
CASE MANAGEMENT DISCHARGE SUMMARY PATIENT: TYRONE MONROY UNIT: [id number] ADM DATE: 08/24/20 AGE: 65 : 53 SEX: F ROOM/BED: D.2108 AUTHOR: PAUL MOTT PHYSICIAN: REFERRING PHYSICIAN: MONET ARANA DO DATE OF SERVICE: 08/27/20 Discharge Plan Patient Name: TYRONE MONROY Facility: [facility]:[place] : 1955 Planned Disposition: Home Anticipated Discharge Date: 08/27/20 Discharge Date: 08/27/2020 Expected LOS: 3 Initial Reviewer: [email or web address] Initial Review Date: 08/24/2020 Generated: 08/27/20 7:00 pm Patient Name: TYRONE MONROY Page [phone] at 1801 All edits/amendments must be made on the electronic document DICTATION DATE: 08/27/201800 FOOD SERVER: MERY 08/27/201800 RPT#: [id number] DC DATE:08/27/20 STATUS: DIS IN [facility] [address] [place] [address] END OF REPORT
--- NOTE | 2020-08-27 18:08 | MORECARE ---
CASE MANAGEMENT DISCHARGE SUMMARY PATIENT: TYRONE MONROY UNIT: [id number] ADM DATE: 08/24/20 AGE: 65 : 53 SEX: F ROOM/BED: D.7536 AUTHOR: PANTERADOC PHYSICIAN: REFERRING PHYSICIAN: MONET ARANA DO DATE OF SERVICE: 08/27/20 Discharge Plan Patient Name: TYRONE MONROY Facility: [facility]:[place] : 1955 Planned Disposition: Home Anticipated Discharge Date: 08/27/20 Discharge Date: 08/27/2020 Expected LOS: 3 Initial Reviewer: CELY Initial Review Date: 08/24/2020 Generated: 08/27/20 7:07 pm Comments DCP- Discharge Planning Updated by CELY: Esteban Gallardo on 08/27/20 5:[address] Patient Name: TYRONE MONROY Admission Status: ER Accout number: [id number] Admission Date: 08-24-2020 : 1955 Admission Diagnosis:UNSPECIFIED ATRIAL FIBRILLATION Attending: MONET ARANA Current LOS: 3 Anticipated DC Date: 08-27-2020 Planned Disposition: Home Primary Insurance: [facility] MEDICARE SOLUTIONS Discharge Planning Comments: CM met with patient to complete initial dc planning assessment. CM educated patient on the CM role and verbal consent given by patient to complete assessment. CM verified patient's address, phone number, and emergency contact phone numbers. Patient lives at home with family. At discharge patient plans to return home and feels this is a safe discharge. The patient has 3 steps to navigate to enter the home and it is safe. Patient fills her medications at [facility] in [place]. CM discussed availability of home health, rehab services, and medical equipment. Patient declined HHS, SNF, IPR, DME and no other known discharge needs were discussed at this time. Transportation provider at discharge will be with her son Piter Gillis [phone]. CM will continue to follow and will assist as needed with dc plans/needs. Performance Engineer: Esteban Gallardo DCPIA - Discharge Planning Initial Assessment Updated by [email or web address]: Esteban Gallardo on 08/27/20 6:01 pm * Is the patient Alert and Oriented? Yes * How many steps to enter\exit or inside your home? 0/0 * PCP Dr. Alicea * Pharmacy [facility] * Preadmission Environment Home with Family * ADLs Independent * Equipment None * Other Equipment n/a * List name and contact numbers for known caregivers / representatives who currently or will assist patient after discharge: Piter Vargas - [phone] * Verbal permission to speak to the caregivers and representatives has been obtained from the patient. Yes * Community resources currently utilized None * Please name any agencies selected above. n/a * Additional services required to return to the preadmission environment? No * Can the patient safely return to the preadmission environment? Yes * Has this patient been hospitalized within the prior 30 days at any hospital? No Coverage Notice Reviewer: [id number] Marybeth Gallardo Notice Issued Date-Time: 08/27/2020 11:05 Notice Type: Patient Choice Letter Notice Delivered To: Patient Relationship to Patient: Self Pedorthist Name: Delivery Method: HAND - Hand Delivered Tigist Days: Prior Verbal Notification: Recipient Understood Notice: Yes Recipient Signature: Yes Med Rec Note Co-signed by Attending: Coverage Notice Comment: 0 DME/SNF/HHS/IPR Reviewer: [email or web address] Marybeth Gallardo Notice Issued Date-Time: 08/27/2020 11:05 Notice Type: IM Discharge Notice Notice Delivered To: Patient Relationship to Patient: Self Pedorthist Name: Delivery Method: HAND - Hand Delivered Tigist Days: Prior Verbal Notification: Recipient Understood Notice: Yes Recipient Signature: Yes Med Rec Note Co-signed by Attending: Coverage Notice Comment: DC IMM delivered, explained, signed by the patient, and placed in chart. Signed form also left with the patient. Last DP export: 08/27/20 5:01 p Patient Name: TYRONE MONROY Page 67130 at 1808 All edits/amendments must be made on the electronic document DICTATION DATE: 08/27/201806 FLOORING INSTALLER: MERY 08/27/201806 RPT#: [id number] DC DATE:08/27/20 STATUS: DIS IN [facility] [address] [place] [address] END OF REPORT
--- NOTE | 2020-08-29 08:51 | MORECARE ---
CASE MANAGEMENT DISCHARGE SUMMARY PATIENT: TYRONE MONROY UNIT: [id number] ADM DATE: 08/24/20 AGE: 65 : 53 SEX: F ROOM/BED: D.1538 AUTHOR: PANTERADOC PHYSICIAN: REFERRING PHYSICIAN: MONET ARANA DO DATE OF SERVICE: 08/29/20 Discharge Plan Patient Name: TYRONE MONROY Facility: [facility]:[place] : 1955 Planned Disposition: Home Anticipated Discharge Date: 08/27/20 Discharge Date: 08/27/2020 Expected LOS: 3 Initial Reviewer: CELY Initial Review Date: 08/24/2020 Generated: 08/29/20 9:51 am Comments DCP- Discharge Planning Updated by CELY: Esteban Gallardo on 08/27/20 5:[address] Patient Name: TYRONE MONROY Admission Status: ER Accout number: [id number] Admission Date: 08-24-2020 : 1955 Admission Diagnosis:UNSPECIFIED ATRIAL FIBRILLATION Attending: MONET ARANA Current LOS: 3 Anticipated DC Date: 08-27-2020 Planned Disposition: Home Primary Insurance: [facility] MEDICARE SOLUTIONS Discharge Planning Comments: CM met with patient to complete initial dc planning assessment. CM educated patient on the CM role and verbal consent given by patient to complete assessment. CM verified patient's address, phone number, and emergency contact phone numbers. Patient lives at home with family. At discharge patient plans to return home and feels this is a safe discharge. The patient has 3 steps to navigate to enter the home and it is safe. Patient fills her medications at [facility] in [place]. CM discussed availability of home health, rehab services, and medical equipment. Patient declined HHS, SNF, IPR, DME and no other known discharge needs were discussed at this time. Transportation provider at discharge will be with her son Piter Gillis [phone]. CM will continue to follow and will assist as needed with dc plans/needs. Change Over: Esteban Gallardo DCPIA - Discharge Planning Initial Assessment Updated by [email or web address]: Esteban Gallardo on 08/27/20 6:01 pm * Is the patient Alert and Oriented? Yes * How many steps to enter\exit or inside your home? 0/0 * PCP Dr. Alicea * Pharmacy [facility] * Preadmission Environment Home with Family * ADLs Independent * Equipment None * Other Equipment n/a * List name and contact numbers for known caregivers / representatives who currently or will assist patient after discharge: Piter Vargas - [phone] * Verbal permission to speak to the caregivers and representatives has been obtained from the patient. Yes * Community resources currently utilized None * Please name any agencies selected above. n/a * Additional services required to return to the preadmission environment? No * Can the patient safely return to the preadmission environment? Yes * Has this patient been hospitalized within the prior 30 days at any hospital? No Coverage Notice Reviewer: [email or web address] Marybeth Gallardo Notice Issued Date-Time: 08/27/2020 11:05 Notice Type: Patient Choice Letter Notice Delivered To: Patient Relationship to Patient: Self Parachute Officer Name: Delivery Method: HAND - Hand Delivered Tigist Days: Prior Verbal Notification: Recipient Understood Notice: Yes Recipient Signature: Yes Med Rec Note Co-signed by Attending: Coverage Notice Comment: 0 DME/SNF/HHS/IPR Reviewer: [email or web address] Marybeth Gallardo Notice Issued Date-Time: 08/27/2020 11:05 Notice Type: IM Discharge Notice Notice Delivered To: Patient Relationship to Patient: Self Parachute Officer Name: Delivery Method: HAND - Hand Delivered Tigist Days: Prior Verbal Notification: Recipient Understood Notice: Yes Recipient Signature: Yes Med Rec Note Co-signed by Attending: Coverage Notice Comment: DC IMM delivered, explained, signed by the patient, and placed in chart. Signed form also left with the patient. Last DP export: 08/27/20 5:08 p Patient Name: TYRONE MONROY Page 86383 at 0851 All edits/amendments must be made on the electronic document DICTATION DATE: 08/29/20850 BOAT RENTAL CLERK: MERY 08/29/20850 RPT#: [id number] DC DATE:08/27/20 STATUS: DIS IN [facility] [address] [place] [address] END OF REPORT
== END 2020-08-27 12:57 | disposition home or self-care (01) | DRG 308 ==
LOC: D.ER 13:36 → D.M2 17:49
PROVIDERS: Family Medicine; ADMIT Family Medicine; ATTEND Family Medicine
DX: I48.91 Unspecified atrial fibrillation (principal); J18.9 Pneumonia, unspecified organism; J98.11 Atelectasis; E11.40 Type 2 diabetes mellitus with diabetic neuropathy, unspecified; I10 Essential (primary) hypertension; E78.5 Hyperlipidemia, unspecified; E11.65 Type 2 diabetes mellitus with hyperglycemia; F41.8 Other specified anxiety disorders; K21.9 Gastro-esophageal reflux disease without esophagitis; E83.42 Hypomagnesemia